=== PATIENT | male | born 1955 | race Caucasian/White ===

== ENCOUNTER 2018-07-17 08:10 | Outpatient (CLI) | payer OTHER ==
[2018-07-17 08:57] LABS: eGFR (Non-African) > 60
== END 2018-07-17 08:12 ==
LOC: LAB 08:10
PROVIDERS: ATTEND Family Medicine
DX: E78.5 Hyperlipidemia, unspecified (principal); R73.9 Hyperglycemia, unspecified
CPT/HCPCS: 36415; 80053; 80061; 83036

== ENCOUNTER 2019-03-17 14:18 | Outpatient (CLI) | payer OTHER | END 2019-03-17 14:23 | disposition home or self-care (01) | LOC: RAD 14:18 | PROVIDERS: ATTEND Family Medicine | DX: M79.661 Pain in right lower leg (principal); M79.662 Pain in left lower leg | CPT/HCPCS: 93970 ==